=== PATIENT | female | born 1965 | race Caucasian/White ===

== ENCOUNTER 2017-07-06 14:39 | Emergency (ER) | payer BC ==
--- NOTE | ~2017-07-06 | CR281 ---
[facility] A Service of [facility] RADIOLOGY TEXT RESULTS PATIENT: ADEN [place] [facility] [place] 65 [place] #: [id number] AGE: [address]: Von Plasencia MD SEX: F ORDER DR: [id number] [address] [address] [id number] E MR#: [id number] Acc #: [id number] NAME: ADEN JUAN : 1965 SEX: F STUDY DATE/TIME: 07/06/2017 15:07 UNIT: SED ROOM: STUDY DESCRIPTION: CR Wrist Min 3 View Lt Attending Physician: Von Plasencia M.D. Ordering Physician: Von Plasencia M.D. Primary Care Physician: Miller Woodard M.D. MEDICAL IMAGING REPORT This report is preliminary unless electronic signature is present. EXAM Left wrist series 07/06/2017 HISTORY Fell in a store. Pain swelling left wrist. TECHNIQUE AP, lateral and oblique radiographs of the left wrist are presented. FINDINGS There is a comminuted intraarticular fracture involving the distal left radius. There are dominant transverse and longitudinal fracture planes. The dominant transverse fracture planes are at a level about 8 mm from the articular surface of the radius. There is mild anterior angulation of the dominant fracture fragments. There is probably some mild proximal displacement of radial aspect of a dominant fracture fragment by about 1-2 mm. There is associated impaction along the fracture planes. The proximal carpal row remains normally aligned with the radial articular surface. There is some mild widening of the scapholunate interval concerning for possible scapholunate ligamentous disruption. No carpal bone fracture. Soft tissue swelling around the wrist, most pronounced anteriorly. No soft tissue defect, subcutaneous air or radiodense foreign body. Dictated by... David Clarke M.D. THIS IS AN ELECTRONICALLY VERIFIED REPORT David Clarke M.D. at 07/08/2017 5:[address] [facility] A Service of [facility] RADIOLOGY TEXT RESULTS PATIENT: ADEN JUAN LOCATION: [facility] #: [id number] : 65 UNIT #: [id number] AGE: [address]: Von Plasencia MD SEX: F ORDER DR: ASHELY/charles TD: 07/07/2017 15:21 JOB #: [id number] MEDICAL IMAGING REPORT Page 1 of 1
[~2017-07-06 14:39] MED LIST: PERCOCET PO; SYNTHROID0.05 MG PO; SYNTHROID0.1 MG PO
== END 2017-07-06 16:04 | disposition home or self-care (01) ==
LOC: SED 14:39
DX: S52.572A Other intraarticular fracture of lower end of left radius, initial encounter for closed fracture (principal); E03.9 Hypothyroidism, unspecified; Z79.899 Other long term (current) drug therapy; W01.0XXA Fall on same level from slipping, tripping and stumbling without subsequent striking against object, initial encounter; Y92.410 Unspecified street and highway as the place of occurrence of the external cause
CPT/HCPCS: 29125; 73110; 99283